=== PATIENT | female | born 1940 | race Caucasian/White ===

== ENCOUNTER 2017-05-02 15:21 | Inpatient (IN) | payer MEDICARE ==
[~2017-05-02] VITALS: Ht 149.9 cm; Wt 62.0 kg
[~2017-05-02 15:21] MED LIST: ASPIRIN325 MG; ASPIRIN81 MG PO; CIPROFLOXACN500 MG PO; CRESTOR10 MG PO; FISH OIL1000 MG PO; ISOSORB MONO30 MG PO; ISOSORBID1 PO; LEVOTHYROXIN75 MC1 PO; LIPITOR40 M1 PO; LISINOPRIL5 MG PO; MECLIZINE25 MG PO; PLAVIX75 MG PO; TOPROL XL25 M1 PO; VALTREX1 GM PO; VITA D-1000 OR
[2017-05-08] VITALS (9 sets, daily range): BP systolic 95–121; BP diastolic 40–58
--- NOTE | 2017-05-08 11:35 | NUR ---
FROM OR VIA BED ACCOMPANIED BY MEE ONEILL. FAMILY AT BEDSIDE. RESPS EVEN AND UNLABORED ON ROOM AIR. #20 RAC INFUSING WITHOUT DIFFICULTY, SITE APPEARS HEALTHY. DRESSING TO RIGHT HIP CDI, ICE PACK TO RIGHT HIP. ABDUCTOR PILLOW BETWEEN KNEES. SCD TO LEFT LOWER LEG. ORIENTED TO ROOM AND CALL SYSTEM. BED IN LOWEST POSITION WITH WHEELS LOCKED. SAFETY PRECAUTIONS REINFORCED. CALL LIGHT WIHIN REACH. ENCOURAGED PT AND FAMILY TO CALL FOR ANY NEEDS. WILL CONTINUE TO MONITOR.
--- NOTE | 2017-05-08 14:05 | NUR ---
PHYSIACL THERAPY IN WITH PT.
--- NOTE | 2017-05-08 16:00 | NUR ---
RESTING IN SUPINE POSITION WITH ABDUCTOR PILLOW IN PLACE. RESPS EVEN AND UNLABORED ON ROOM AIR. SCD TO LEFT LOWER EXTREMITY. #20 RAC INFUSING WITHOUT DIFFICULTY, SITE APPEARS HEALTHY. DENIES PAIN OR DISCOMFORT. TOLERATING ICE CHIPS WITHOUT C/O NAUSEA. WILL CONTINUE TO MONITOR.
--- NOTE | 2017-05-08 19:30 | NUR ---
BEDSIDE REPORT RECEIVED FROM MAI ADAME. PT RESTING IN BED SUPINE WITH EYES CLOSED. STATES THAT HER PAIN IS "NOT THAT BAD." DRESSING TO RIGHT HIP IS CDI AND ICE IS APPLIED. RESPIRATIONS EVEN AND UNLABORED ON ROOM AIR. STATES THAT SOON SHE WANTS TO TRY TO AGAIN TO VOID IN BEDPAN; WAS UNABLE TO DURING PREVIOUS ATTEMPT. PLAN OF CARE DISCUSSED. PT ENCOURAGED TO VERBALIZE CONCERNS. STATES UNDERSTANDING. SAFETY MEASURES IN PLACE. CALL LIGHT WITHIN REACH.
--- NOTE | 2017-05-08 23:58 | NUR ---
PT USED FRACTURE PAIN TO VOID 200ML CLEAR YELLOW URINE. TOLERATED WELL. MEDICATED WITH 2 PERCOCET AFTERWARDS. SHE NOW HAS SOME MILD CONFUSION AND THINKS THAT SHE IS HOME. EASILY REORIENTED. NO OTHER REQUESTS AT THIS TIME. EDUCATED ON USE OF IS THAT IS AT BEDSIDE WITH RETURN DEMONSTRATION; UP TO 500. SAFETY MEASURES IN PLACE. CALL LIGHT WITHIN REACH.
[2017-05-09 04:16] VITALS: BP 122/67
--- NOTE | 2017-05-09 04:41 | NUR ---
PT SITTING UP IN BED WITH NAUSEA, NO EMESIS. ZOFRAN GIVEN AT THIS TIME. PT STAES THAT PAIN, "IS NOT THAT BAD." IN SEMI FOWLERS POSITION WITH ABDUCTOR PILLOW BETWEEN LETS. IV FLUIDS INFUSING WITHOUT DIFFICULTY; IV SITE APPEARS HEALTHY. PT HAS NO FURHER REQUESTS AT THIS TIME. STATES THAT SHE DOES NOT HAVE TO USE THE BATHROOM. SAFETY MEASURES IN PLACE. CALL LIGHT WITHIN REACH.
[2017-05-09 05:26] LABS: MEAN CELL VOLUME 94.5 fL CALC (80.0-100.0); MEAN CORPUSCULAR HGB 32.2 pG CALC (26.0-32.0); RED BLOOD COUNT 2.55 mill/uL (4.20-5.60); RED CELL DISTRI WIDTH 13.2 % (11.5-15.5)
--- NOTE | 2017-05-09 05:49 | NUR ---
PT BLADDER SCANNED AFTER ONLY VOIDING 200ML ALL SHIFT. SCAN SHOWED 626ML IN BLADDER. PT ASSISTED TO BSC X 2 PERSON ASSIST AND SHE VOIDED 350ML.
[2017-05-09 05:56] LABS: ANION GAP 13 (6-22 (CALC)); BUN 13 mg/dL (8-23); BUN/CREATININE RATIO 20 (12-20 (CALC)); CARBON DIOXIDE 23 mmol/l (22-30); CHLORIDE 106 mmol/l (95-108); CREATININE 0.7 mg/dL (0.5-1.0); GFR > 60 ML/MIN (>=60 (CALC)); GFR FOR AFR.AMER. > 60 ML/MIN (>=60 (CALC)); POTASSIUM 4.1 mmol/l (3.5-5.1); SODIUM 139 mmol/l (137-146)
[2017-05-09 06:06] LABS: HEMATOCRIT 24.1 % (37.0-47.0); HEMOGLOBIN 8.2 g/dl (12.0-16.0)
--- NOTE | 2017-05-09 07:00 | NUR ---
RECEIVED BEDSIDE REPORT FROM LAURIE ONEILL. RESTING IN SUPINE POSITION WITH EYES CLOSED, AWAKENS WITH VERBAL STIMULI. RESPS EVEN AND UNLABORED ON ROOM AIR. ABDUCTOR PILLOW BETWEEN KNEES, DRESSING TO RIGHT HIP CDI, SCD TO LEFT LOWER EXTREMITY. #20 RAC INFUSING WITHOUT DIFFICULTY, SITE APPEARS HEALTHY. DENIES PAIN OR DISCOMFORT. PLAN OF CARE DISCUSSED. SAFETY PRECAUTIONS REINFORCED. BED IN LOWEST POSITION WITH WHEELS LOCKED. CALL LIGHT WITHIN REACH. WILL CONTINUE TO MONITOR.
[2017-05-09 07:59] VITALS: BP 96/41
[2017-05-09 09:15] LABS: CHOLESTEROL HDL RATIO 2.4 (<4.4 (CALC)); MAGNESIUM 1.6 mg/dL (1.6-2.3)
[2017-05-09 09:37] VITALS: BP 120/52
--- NOTE | 2017-05-09 10:23 | NUR ---
PHYSICAL THERAPY IN WITH PT.
--- NOTE | 2017-05-09 11:40 | NUR ---
IN SEMI FOWLERS WITH EYES CLOSED, AWAKENS EASILY. AT BEDSIDE. RESPS EVEN AND UNLABORED ON ROOM AIR. #20 RAC INFUSING WITHOUT DIFFICULTY, SITE APPEARS HEALTHY. DR LISA AT BEDSIDE, NEW ORDERS RECEIVED. CALL LIGHT WITHIN REACH. VOICES NO NEEDS. WILL CONTINUE TO MONITOR.
--- NOTE | 2017-05-09 15:00 | NUR ---
AMBULATING IN HALLWAY WITH PHYSICAL THERAPY. ASSISTED TO BEDSIDE CHAIR. RESPS EVEN AND UNLABORED ON ROOM AIR. #20 RAC INFUSING WITHOUT DIFFICULTY, SITE APPEARS HEALTHY. VOICES NO NEEDS. CALL LIGHT WITHIN REACH. WILL CONTINUE TO MONITOR.
--- NOTE | 2017-05-09 15:16 | NUR ---
Pt seen this pm per PT. She was in process of transfer to BS with PSYCHOLOGY INTERN, she required assist with RLE and scooting. Transfer to BS with CGA/min assist x2. Ambulated x30' with RW and CGA. She returned to room and sat into chair. RLE ex performed AA with therapist maintaining hip precautions. Pt required verbal and physical cues with activities with some confusion noted. Pt left reclined in chair with heels off loaded. PSYCHOLOGY INTERN/nurse still working in room.
[2017-05-09 15:35] VITALS: BP 105/57
[2017-05-09 17:11] LABS: HEMATOCRIT 25.9 % (37.0-47.0); HEMOGLOBIN 8.7 g/dl (12.0-16.0)
[2017-05-09 19:00] VITALS: BP 117/60
--- NOTE | 2017-05-09 19:00 | NUR ---
RECEIVED CHANGE OF SHIFT REPORT FROM MAI ADAME. PATIENT ALERT AND ORIENTED AND UP TO BATHROOM AT T HIS TIME. NO APPARENT ACUTE DISTRESS NOTED. WILL CONTINUE TO ONITOR.
--- NOTE | 2017-05-10 | NUR ---
PATIENT RESTING QUIETLY AT THIS TIME. NO APPARENT ACUTE DISTRESS NOTED. IVF INFUING WITHOUT DIFFICULTY.
[2017-05-10 00:05] VITALS: BP 108/64
[2017-05-10 04:35] VITALS: BP 108/60
[2017-05-10 05:17] LABS: HEMATOCRIT 22.5 % (37.0-47.0); HEMOGLOBIN 7.6 g/dl (12.0-16.0)
[2017-05-10 05:35] LABS: ANION GAP 11 (6-22 (CALC)); BUN 10 mg/dL (8-23); BUN/CREATININE RATIO 16 (12-20 (CALC)); CARBON DIOXIDE 27 mmol/l (22-30); CHLORIDE 107 mmol/l (95-108); CREATININE 0.6 mg/dL (0.5-1.0); GFR > 60 ML/MIN (>=60 (CALC)); GFR FOR AFR.AMER. > 60 ML/MIN (>=60 (CALC)); MAGNESIUM 1.7 mg/dL (1.6-2.3); POTASSIUM 3.9 mmol/l (3.5-5.1); SODIUM 141 mmol/l (137-146)
--- NOTE | 2017-05-10 07:00 | NUR ---
BEDSIDE REPORT RECEIVED BY PILAR. PT IS SLEEPING WITH NO S/S OF DISTRESS NOTED. CALL LIGHT IN REACH.
[2017-05-10 07:34] VITALS: BP 99/63
--- NOTE | 2017-05-10 08:00 | NUR ---
ASSESSMENT DONE. RESPS EVEN AND UNLABORED. NS INFUSING WELL. ENCOURAGE PT TO USE INCENTIVE SPIROMETRY. RT HIP DRESSING IS CDI. ORIENTED TO CALL LIGHT AND SAFETY PRECAUTIONS REINFORCED.
--- NOTE | 2017-05-10 08:48 | NUR ---
MEDICATED PT WITH PERCOCET SEE EMAR.
--- NOTE | 2017-05-10 11:41 | NUR ---
AM: PATIENT SEEN FOR GAIT AND EXERCISES. SHE STATES PAIN IS 2/10. PATIENT HAD NO RECOLLECTION OF RECEIVING INSTRUCTIONS ON HIP PRECAUTIONS. HIP PRECAUTIONS REVIEWED WITH HER. TRANSFER TRAINING DONE SUPINE TO SIT TO STAND. SHE REQUIRED CONTINUAL VERBAL CUING TO OBSERVE HIP PRECAUTIONS DURING SUPINE TO SIT. GAIT TRAINING DONE WITH ROLLING WALKER. SHE AMBULATED 35 FEET WITH CONTINUAL CUING FOR SEQUENCING AND SAFETY. TWICE SHE TRIED TO LEAVE THE WALKER AND TRY TO WALK WITHOUT IT. SHE WAS FIRMLY CAUTIONED TO BEWARE OF THIS. SHE WAS LEFT COMFORTABLE IN THE CHAIR WITH THE CALL LIGHT AND TRAY TABLE IN FRONT OF HER. THE THERAPIST INSTRUCTED HER BE CERTAIN TO CALL FOR THE NURSE TO RETURN TO BED.
--- NOTE | 2017-05-10 12:00 | NUR ---
PT IS SITTING IN RECLINER WITH NO S/S OF DISTRESS NOTED. PT DENIES NEEDS AT THIS TIME. CALL LIGHT IN REACH.
--- NOTE | 2017-05-10 14:45 | NUR ---
Pt seen this pm for gait and ther ex (30 min). Pt was sleeping in chair, A/AAROM ex performed in recline and sitting with hip precautions maintained. Pt ambulated with RW and CGA 2x 75' with vc to stand tall. Pt with poor safety skills and required vc and physical cueing. Pt returned to chair with proper positioning and call joseph/phone in reach. Pt IV sit noted to be wet, nursing notified and in to check.
[2017-05-10 14:46] VITALS: BP 97/52
--- NOTE | 2017-05-10 16:10 | NUR ---
PT IS SITTING IN RECLINER WITH NO S/S OF DISTRESS NOTED. PT DENIES PAIN OR NEEDS AT THIS TIME. IN ROOM. CALL LIGHT IN REACH.
--- NOTE | 2017-05-10 17:35 | NUR ---
The patient was seen this AM for review of hip precuations. She received a copy of precautions and reviewed her HEP for isometric hip strengthening and ankle pumps. She is later reviewed precautions again with treating therapist but will need reinforcement upon DC
--- NOTE | 2017-05-10 21:42 | NUR ---
BEDSIDE REPORT RECEIVED FROM MAI HEARD. PT ASSISTED WITH AMBULATION TO BATHROOM WITH RW TO VOID 450ML OF DARK YELLOW URINE. SHE AMBULATED TO BED AND WAS POSITIONED WITH ABDUCTOR PILLOW IN PLACE. SHE STATES THAT HER PAIN IS TOLERABLE TO DECLINES PAIN MEDICATION AT THIS TIME. RESPIRATIONS EVEN AND UNLABORED ON ROOM AIR. IV FLUIDS REMOVED PT TOLERATED HER DINNER. PLAN OF CARE REVIEWED. PT ENCOURAGED TO VERBALIZE CONCERNS. STATES UNDERSTANDING. SAFETY MEASURES IN PLACE. CALL LIGHT WITHIN REACH.
--- NOTE | 2017-05-11 | NUR ---
PT ASLEEP AT THIS TIME WITH NO SIGNS OF DISTRESS. RESPIRATIONS EVEN AND UNLABORED ON ROOM AIR. USES CALL LIGHT PRN FOR ASSISTANCE. SAFETY MEASURES IN PLACE. CALL LIGHT WITHIN REACH.
[2017-05-11 00:17] VITALS: BP 124/75
[2017-05-11 03:56] VITALS: BP 98/48
--- NOTE | 2017-05-11 04:00 | NUR ---
PT UP ONCE TO AMBULATED TO THE BATHROOM. PERCOCET GIVEN AT THIS TIME FOR PAIN TO RIGHT HIP. RESPIRATIONS EVEN AND UNLABORED ON ROOM AIR. BLOOD PRESSURES HAVE BEEN LOW 90S/50S. HS LISINOPRIL HELD LAST NIGHT. NO ACUTE CHANGES IN CONDITION NOTED. PT USES LIGHT PRN FOR ASSISTANCE. SAFETY MEASURES IN PLACE. CALL LIGHT WITHIN REACH.
[2017-05-11 05:34] LABS: ANION GAP 10 (6-22 (CALC)); BUN 9 mg/dL (8-23); BUN/CREATININE RATIO 16 (12-20 (CALC)); CARBON DIOXIDE 29 mmol/l (22-30); CHLORIDE 107 mmol/l (95-108); CREATININE 0.6 mg/dL (0.5-1.0); GFR > 60 ML/MIN (>=60 (CALC)); GFR FOR AFR.AMER. > 60 ML/MIN (>=60 (CALC)); MAGNESIUM 1.7 mg/dL (1.6-2.3); POTASSIUM 3.7 mmol/l (3.5-5.1); SODIUM 142 mmol/l (137-146)
[2017-05-11 05:38] LABS: HEMATOCRIT 22.7 % (37.0-47.0); HEMOGLOBIN 7.7 g/dl (12.0-16.0); MEAN CELL VOLUME 95.4 fL CALC (80.0-100.0); MEAN CORPUSCULAR HGB 32.4 pG CALC (26.0-32.0); MEAN CORPUSCULAR HGB CONC 33.9 g/L CALC (32.0-36.0); RED BLOOD COUNT 2.38 mill/uL (4.20-5.60); RED CELL DISTRI WIDTH 13.8 % (11.5-15.5)
--- NOTE | 2017-05-11 07:00 | NUR ---
BEDSIDE REPORT RECEIVED BY MAI CALDERON. PT IS SLEEPING WITH NO S/S OF DISTRESS NOTED. CALL LIGHT IN REACH.
[2017-05-11 07:50] VITALS: BP 108/47
--- NOTE | 2017-05-11 08:00 | NUR ---
ASSESSMENT DONE. RESPS EVEN AND UNLABORED.# 20 RAC THAT APPEARS HEALTHY. RT HIP DRERSSING CDDI. PT DENIES PAIN AT THIS TIME. SAFETY PRECAUTIONS REINFORCED AND CALL LIGHT IN REACH.
--- NOTE | 2017-05-11 10:04 | NUR ---
Patient seen this morning for exercise and gait, gait belt applied prior to gait. Hip precautions reviewed of which pt. verbalized understanding of same. In bed pt. perform AROM of toes, AROM ankle pumps, and A/AAROM R and L knee extension sitting at edge of bed. Supine to sit with min. assist for maintaing hip precautions. Sit to stand done with supervision and verbal cues for UE push off from bed. Pt. ambulated x75 feet with RW and CGA of 1, pt. ambulates with step to gait pattern. Able to correct gait with cues, however only maintains for 3-4 steps and returns to step to gait pattern. Pt. requested to sit in recliner, verbal cues given for reaching back for armrests and to slowly lower onto recliner. Once seated call light was reviewed and left within reach. Heels were offloaded and hip abduction pillow in place. Pt. without questions or concerns after treatment. Nurse informed.
--- NOTE | 2017-05-11 12:00 | NUR ---
PT IS SITTING IN RECLINER WITH NO S/S OF DISTRESS NOTED. PT DENIES NEEDS AT THIS TIME. CALL LIGHT IN REACH.
[2017-05-11] MEDS ORDERED: PERCOCET 10/31 COMBO PO (12:13)
[2017-05-11 14:00] VITALS: BP 110/54
--- NOTE | 2017-05-11 15:22 | NUR ---
Pt seen this pm for gait and ther ex (25 min). Pt was OOB in chair, answered questions appropriately. Ther ex performed in recline and sitting A/AAROM, maintaining hip precautions on R. Gait with RW 2 x80' CGA and verbal cue for safety and hip precautions. Non skid socks and gait belt in place. Pt repositioned correctly in chair with wedge in place. Call joseph and phone in reach.
--- NOTE | 2017-05-11 15:35 | NUR ---
Patient was counseled on discharge medications. Patient confirmed understanding.
[2017-05-11 15:42] VITALS: BP 112/49
--- NOTE | 2017-05-11 16:00 | NUR ---
PT IS SITTING RECLINER WITH NO S/S OF DISTRESS NOTED. ICE PACK APPLIED FOR RIGHT HIP. PT DENIES ANY OTHER NEEDS AT THIS TIME. CALL LIGHT IN REACH.
--- NOTE | 2017-05-11 17:04 | NUR ---
MEDICATED PT WITH PERCOCET FOR PAIN SEE EMAR. CALL LIGHT IN REACH.
--- NOTE | 2017-05-11 19:00 | NUR ---
BEDSIDE REPORT RECEIVED FROM MAI HEARD. PT RESTING IN BED WITH EYES CLOSED; NO SIGNS OF DISTRESS NOTED. RESPIRATIONS EVEN AND UNLABORED. NEEDED ENCOURGMENT TO EAT DINNER. ABDUCTOR PILLOW IN PLACE. SAFETY MEASURES IN PLACE. CALL LIGHT WITHIN REACH.
[2017-05-11 19:20] VITALS: BP 133/45
--- NOTE | 2017-05-12 | NUR ---
PT ASLEEP AT THIS TIME WITH NO SIGNS OF DISTRESS NOTED. RESPIRATIONS EVEN AND UNLABORED ON ROOM AIR. SUPPOSITORY GIVEN AT BEGINNING OF SHIFT; PT HAS NOT YET HAD A BOWEL MOVEMENT. SAFETY MEASURES IN PLACE. CALL LIGHT WITHIN REACH.
[2017-05-12 00:11] VITALS: BP 117/55
--- NOTE | 2017-05-12 04:20 | NUR ---
PT SITTING UP IN BED DRINKING WARM COFFEE; ALSO OFFERED WARM PRUNE JUICE WHICH IS ON BEDSIDE TABLE. ENCOURAGED TO DRINK AND STIMULATE BOWELS. VS STABLE. SHE SLEPT THROUGHOUT THE NIGHT. NO ACUTE CHANGES IN CONDITION NOTED. SAFETY MEASURES IN PLACE. CALL LIGHT WITHIN REACH.
[2017-05-12 04:25] VITALS: BP 131/58
[2017-05-12 06:39] LABS: HEMATOCRIT 24.8 % (37.0-47.0); HEMOGLOBIN 8.4 g/dl (12.0-16.0); MEAN CORPUSCULAR HGB 32.2 pG CALC (26.0-32.0); MEAN CORPUSCULAR HGB CONC 33.9 g/L CALC (32.0-36.0); RED BLOOD COUNT 2.61 mill/uL (4.20-5.60); RED CELL DISTRI WIDTH 13.6 % (11.5-15.5)
--- NOTE | 2017-05-12 07:00 | NUR ---
BEDSIDE REPORT RECEIVED BY YUMIKO. PT IS SLEEPING WITH NO S/S OF DISTRESS NOTED. CALL LIGHT IN REACH.
[2017-05-12 08:00] VITALS: BP 114/59
--- NOTE | 2017-05-12 08:00 | NUR ---
ASSESSMENT DONE. RESPS EVEN AND UNLABORED. #20 RAC THAT APPEARS HEALTHY. PT STATED PAIN IS 1/10 IN HIP BUT REFUSED PAIN MEDICATION AT THIS TIME. SAFETY PRECAUTIONS REINFORCED AND CALL LIGHT IN REACH.
[2017-05-12 08:44] VITALS: BP 114/59
--- NOTE | 2017-05-12 11:41 | NUR ---
PATIENT UP IN CHAIR. STATES SHE HAD A SMALL B.M. AND IS WAITING TO GO TO REHAB. REVIEWED SHERIE PRECUATIONS. MODERATE EDEMA NOTED AT DISTAL R LE. A.M. TX OF JEREMIAH AND GT 25 MIN. PATIENT'S ABD PILLOW REMOVED AND SIT TO STAND WITH SBA AND V.C.'S TO MAINTAIN PRECAUTIONS. PATIENT AMB 85 FEET X 2 WITH STANDING REST AND V.C.'S TO INCREASE STEP LENGTH WITH LEFT LE FOR 2 POINT GAIT PATTERN. ABLE TO PASS R FOOT WITH OCCASIONAL VERBAL CUES. REQUIRED ONLY SBA FOR GT TODAY. STAND TO SIT WITH V.C.'S FOR JEREMIAH OF AROM KNEE EXT. CHAIR RECLINED FOR ANKLE PUMPS AND QUAD/GLUT SETS. ABD PILLOW REPLACED, CALL MARK AND TRAY TABLE IN REACH. PATIENT REQUESTING HOT COFFEE, NSG INFORMED. CONT BID UNTIL D/C.
--- NOTE | 2017-05-12 12:51 | NUR ---
MEDICATED PT WITH PERCOCET FOR PAIN SEE EMAR. PT DENIES ANY OTHER NEEDS AT THIS TIME. CALL LIGHT IN REACH. IN ROOM.
--- NOTE | 2017-05-12 13:23 | NUR ---
Discharge instructions given. Patient verbalizes understanding of same. Discharged in stable condition via Wheelchair to [facility] with staff. All belongings sent with pt.
--- NOTE | 2017-05-12 13:26 | NUR ---
REPORT GIVEN TO NURSE RASHIDA FROM [facility].
== END 2017-05-12 13:25 | DRG 470 ==
LOC: MS2 05-08 05:50
PROVIDERS: Internal Medicine; Nurse Practitioner Family; ADMIT Orthopaedic Surgery; ATTEND Orthopaedic Surgery
PROC: 0SR904A Replacement of Right Hip Joint with Ceramic on Polyethylene Synthetic Substitute, Uncemented, Open Approach (ICD-10-PCS; principal; 2017-05-08)
DX: M16.11 Unilateral primary osteoarthritis, right hip (principal); D62 Acute posthemorrhagic anemia; I25.10 Atherosclerotic heart disease of native coronary artery without angina pectoris; E78.5 Hyperlipidemia, unspecified; E03.9 Hypothyroidism, unspecified; K59.03 Drug induced constipation; T40.605A Adverse effect of unspecified narcotics, initial encounter; Z95.5 Presence of coronary angioplasty implant and graft; Z79.02 Long term (current) use of antithrombotics/antiplatelets; Z79.82 Long term (current) use of aspirin
CPT/HCPCS: J1756; J2710

== ENCOUNTER 2017-05-24 18:53 | Observation (INO) | payer MEDICARE ==
[~2017-05-24] VITALS: Ht 154.9 cm; Wt 51.9 kg
[~2017-05-24 18:53] MED LIST changes: +PERCOCET 10/31 COMBO PO
[2017-05-24 19:57] LABS: HEMATOCRIT 29.1 % (37.0-47.0); HEMOGLOBIN 9.6 g/dl (12.0-16.0); IMMATURE GRANULOCYTES 0.3 % (0.0-1.0); MEAN CELL VOLUME 96.7 fL CALC (80.0-100.0); MEAN CORPUSCULAR HGB 31.9 pG CALC (26.0-32.0); NEUT# 8.15 thou/uL (2.00-7.15); RED BLOOD COUNT 3.01 mill/uL (4.20-5.60); RED CELL DISTRI WIDTH 14.7 % (11.5-15.5)
[2017-05-24 20:09] LABS: ANION GAP 18 (6-22 (CALC)); BUN 19 mg/dL (8-23); BUN/CREATININE RATIO 29 (12-20 (CALC)); CARBON DIOXIDE 22 mmol/l (22-30); CHLORIDE 104 mmol/l (95-108); CREATININE 0.7 mg/dL (0.5-1.0); GFR > 60 ML/MIN (>=60 (CALC)); GFR FOR AFR.AMER. > 60 ML/MIN (>=60 (CALC)); POTASSIUM 3.9 mmol/l (3.5-5.1); SODIUM 141 mmol/l (137-146)
[2017-05-24 20:12] LABS: PROTHROMBIN TIME 11.4 SECONDS (9.0-12.5)
[2017-05-24 21:48] VITALS: BP 119/61
[2017-05-24 23:10] VITALS: BP 125/56
[2017-05-25 04:11] VITALS: BP 114/44
[2017-05-25 08:55] VITALS: BP 102/55
[2017-05-25] MEDS ORDERED: ZOFRAN ODT4 MG PO (11:03)
[2017-05-25 11:04] VITALS: BP 113/45
[2017-05-25 12:08] VITALS: BP 113/45
== END 2017-05-25 14:33 | disposition home health service (06) ==
LOC: ED 18:53 → ED-I 20:45 → ED 21:24 → MS2 21:25 → UNDODEPER 05-25 21:50
PROVIDERS: Family Medicine; ADMIT Internal Medicine; ATTEND Internal Medicine
PROC: 0SS9XZZ Reposition Right Hip Joint, External Approach (ICD-10-PCS; principal; 2017-05-24)
PROC: 0T9B70Z Drainage of Bladder with Drainage Device, Via Natural or Artificial Opening (ICD-10-PCS; 2017-05-24)
DX: T84.020A Dislocation of internal right hip prosthesis, initial encounter (principal); E78.5 Hyperlipidemia, unspecified; K29.70 Gastritis, unspecified, without bleeding; K44.9 Diaphragmatic hernia without obstruction or gangrene; I25.10 Atherosclerotic heart disease of native coronary artery without angina pectoris; E03.9 Hypothyroidism, unspecified; M19.90 Unspecified osteoarthritis, unspecified site; Y83.1 Surgical operation with implant of artificial internal device as the cause of abnormal reaction of the patient, or of later complication, without mention of misadventure at the time of the procedure; Z95.5 Presence of coronary angioplasty implant and graft

== ENCOUNTER → 2018-03-29 | Outpatient (REF) | payer MEDICARE ==
[~2018-03-29] MED LIST changes: +ZOFRAN ODT4 MG PO
[2018-03-29 17:10] LABS: HEMATOCRIT 36.2 % (37.0-47.0); IMMATURE GRANULOCYTES 0.1 % (0.0-5.0); MEAN CELL VOLUME 97.1 fL CALC (80.0-100.0); MEAN CORPUSCULAR HGB 32.2 pG CALC (26.0-32.0); MEAN CORPUSCULAR HGB CONC 33.1 g/L CALC (32.0-36.0); NEUT# 4.04 thou/uL (2.00-7.15); RED BLOOD COUNT 3.73 mill/uL (4.20-5.60); RED CELL DISTRI WIDTH 12.8 % (11.5-15.5)
[2018-03-29 17:16] LABS: ALKALINE PHOSPHATASE 75 u/l (38-126); ANION GAP 13 (6-22 (CALC)); BILIRUBIN, TOTAL 0.6 mg/dL (0.0-1.4); BUN 22 mg/dL (8-23); BUN/CREATININE RATIO 29 (12-20 (CALC)); CARBON DIOXIDE 28 mmol/l (22-30); CHLORIDE 104 mmol/l (95-108); CREATININE 0.8 mg/dL (0.5-1.0); GFR > 60 ML/MIN (>=60 (CALC)); GFR FOR AFR.AMER. > 60 ML/MIN (>=60 (CALC)); POTASSIUM 4.3 mmol/l (3.5-5.1); SGOT/AST 23 u/l (9-36); SODIUM 141 mmol/l (137-146); TOTAL PROTEIN 6.9 g/dL (6.3-8.2)
== END | disposition home or self-care (01) ==
LOC: LAB 16:24
PROVIDERS: ATTEND Internal Medicine
DX: I25.10 Atherosclerotic heart disease of native coronary artery without angina pectoris (principal); M25.551 Pain in right hip; R10.31 Right lower quadrant pain

== ENCOUNTER → 2018-04-04 | Outpatient (REF) | payer MEDICARE | END | disposition home or self-care (01) | LOC: CT 02-22 11:00 | PROVIDERS: ATTEND Internal Medicine | DX: R10.31 Right lower quadrant pain (principal); M25.551 Pain in right hip | CPT/HCPCS: Q9967 ==